=== PATIENT | male | born 1990 | race Caucasian/White ===

== ENCOUNTER 2023-08-17 12:14 | Emergency (ER) | payer SELFPAY | END 2023-08-17 15:20 | disposition home or self-care (01) | LOC: ERS 12:14 | DX: J18.9 Pneumonia, unspecified organism (principal); S09.90XA Unspecified injury of head, initial encounter; M79.18 Myalgia, other site; V49.9XXA Car occupant (driver) (passenger) injured in unspecified traffic accident, initial encounter | CPT/HCPCS: 99283 ==